=== PATIENT | female | born 1945 ===

== ENCOUNTER → 2021-04-02 | Outpatient (CLI) | payer MEDICARE, BC | END | disposition home or self-care (01) | LOC: LAB SHORT 15:06 → PLD 15:06 | DX: Z48.817 Encounter for surgical aftercare following surgery on the skin and subcutaneous tissue (principal); L08.9 Local infection of the skin and subcutaneous tissue, unspecified; Z48.02 Encounter for removal of sutures | CPT/HCPCS: 87070; 87077; 87147; 87186; 87205 ==